=== PATIENT | male | born 1945 | race Caucasian/White ===

== ENCOUNTER 2019-01-03 07:51 | Outpatient (CLI) | payer OTHER, MEDICARE ==
[~2019-01-03] VITALS: Ht 177.8 cm; Wt 108.9 kg
[2019-01-03 08:16] LABS: TOTAL HEMOGLOBIN 17.7 G/dl (14.0-17.9)
[2019-01-03] MEDS ORDERED: albuterol 2.5 MG/3 ML nebule NEB PRN (08:35)
== END 2019-01-03 23:59 | disposition home or self-care (01) ==
LOC: RT 07:51
PROVIDERS: ATTEND Internal Medicine
DX: G47.30 Sleep apnea, unspecified (principal); R06.02 Shortness of breath; J44.9 Chronic obstructive pulmonary disease, unspecified
CPT/HCPCS: 85018; 94060; 94727; 94729; 94760

== ENCOUNTER 2020-07-03 08:40 | Emergency (ER) | payer MEDICARE, OTHER ==
[~2020-07-03] VITALS: Ht 175.3 cm; Wt 97.9 kg
[2020-07-03] MEDS ORDERED: morphine 4 MG/ML inj SYRINge IV PRN (09:10)
[2020-07-03] MEDS ORDERED: ketorolac trometh. 30mg/ml inj. IV ONE (09:10)
[2020-07-03] MEDS ORDERED: ondansetron/PF 4mg/2ml inj IV ONE (09:10)
[2020-07-03 09:27] LABS: BASOPHILS # (AUTO) 0.1 X10'3 (0-0.2); BASOPHILS % (AUTO) 0.8 % (0-1); EOSINOPHILS # (AUTO) 0.1 X10'3 (0-0.9); EOSINOPHILS % (AUTO) 1.5 % (0-6); HEMATOCRIT 48.8 % (42.0-52.0); HEMOGLOBIN 16.4 g/dl (14.0-17.9); LYMPHOCYTES # (AUTO) 1.2 X10'3 (1.1-4.8); LYMPHOCYTES % (AUTO) 14.3 % (21-51); MEAN CORPUSCULAR HEMOGLOBIN 31.1 PG (27.0-31.0); MEAN CORPUSCULAR HGB CONC 33.6 g/dL (33.0-36.5); MEAN CORPUSCULAR VOLUME 92.4 FL (78-98); MEAN PLATELET VOLUME 7.6 FL (7.4-10.4); MONOCYTES # (AUTO) 0.4 X10'3 (0-0.9); NEUTROPHILS # (AUTO) 6.6 X10'3 (1.8-7.7); NEUTROPHILS % (AUTO) 78.4 % (42-75); PLATELET COUNT 236 X10'3 (140-440); RED BLOOD COUNT 5.28 X10'6 (4.70-6.10); RED CELL DISTRIBUTION WIDTH 14.1 % (11.5-14.5); WHITE BLOOD COUNT 8.5 X10'3 (4.5-11.0)
--- NOTE | 2020-07-03 09:29 | NUR ---
PATIENT IN CT SCAN
--- NOTE | 2020-07-03 09:50 | NUR ---
BELINDA MONTE4, states that pain is "tolerable" to right lower back patient spo2 on ra 96, bp wnl, placed on 5 lead: sr
[2020-07-03 09:51] LABS: ALANINE AMINOTRANSFERASE 41 U/L (12-78); ALBUMIN 4.2 G/DL (3.4-5.0); ALKALINE PHOSPHATASE 60 IU/L (46-116); AMYLASE 118 U/L (25-115); ANION GAP 12 (8-16); ASPARTATE AMINO TRANSFERASE 26 U/L (10-37); BILIRUBIN,TOTAL 0.5 MG/DL (0.1-1.0); BLOOD UREA NITROGEN 25 MG/DL (7-18); BUN/CREATININE RATIO 17.7 (5.4-32.0); CALCIUM 9.7 MG/DL (8.5-10.1); CHLORIDE 104 MMOL/L (99-107); CREATININE 1.41 MG/DL (0.60-1.10); GLUCOSE 155 MG/DL (70-104); LIPASE 59 U/L (73-393); POTASSIUM 4.4 MMOL/L (3.5-5.1); SODIUM 141 MMOL/L (135-145); TOTAL CARBON DIOXIDE 24.8 MMOL/L (24-32); TOTAL PROTEIN 8.5 G/DL (6.4-8.2); eGFR 49 ML/MIN
[2020-07-03 10:41] LABS: CLARITY,URINE CLOUDY (Clear); COLOR,URINE YELLOW (Yellow); GLUCOSE, URINE NEGATIVE (Neg); KETONES,URINE NEGATIVE (Neg); LEUKOCYTE ESTERASE ,URINE NEGATIVE (Neg); NITRITES, URINE NEGATIVE (Neg); OCCULT BLOOD,URINE LARGE (Neg); PH,URINE 5.5 (4.8-8.0); PROTEIN,URINE 30 mg/dl (Neg); UROBILINOGEN,URINE 0.2 E.U/dL (0.2-1.0)
[2020-07-03 10:42] LABS: UA COLLECTION TYPE URINAL
[2020-07-03 11:12] LABS: HYALINE CASTS 0-3 /LPF (NEGATIVE); MUCUS STRANDS MODERATE /LPF (Neg); SQUAMOUS EPITHELIAL CELL,UR FEW /LPF (FEW)
[2020-07-03 11:13] LABS: BACTERIA,URINE FEW /HPF (Neg); RBC,URINE 50-100 /HPF (0-2); WBC,URINE 0-4 /HPF (0-4)
[2020-07-03] MEDS ORDERED: HYDR-3968 PO (11:19)
[2020-07-03] MEDS ORDERED: morphine 4 MG/ML inj SYRINge IV ONE (11:25)
[2020-07-03 11:44] VITALS: BP 110/63
== END 2020-07-03 12:38 | disposition home or self-care (01) ==
LOC: ER 08:40
DX: N20.0 Calculus of kidney (principal); R10.31 Right lower quadrant pain; F17.200 Nicotine dependence, unspecified, uncomplicated; Z79.899 Other long term (current) drug therapy
CPT/HCPCS: 36415; 74176; 80053; 81001; 82150; 83690; 85025; 96374; 96375; 96376; 99284; J1885; J2270; J2405